=== PATIENT | male | born 1960 | race Caucasian/White ===

== ENCOUNTER 2018-01-03 07:12 | Day surgery (SDC) | payer BC ==
[2017-12-31 14:01] VITALS: BMI 30.2
[2018-01-03 08:54] VITALS: TEMP 97.5
[2018-01-03 12:28] VITALS: BP 112/70; PULSE 71
--- NOTE | 2018-01-04 14:45 | PATH ---
Surgical Pathology Report Patient Name: KAREN GALEANA [facility] Rec. #: [id number] /Age/Gender: 1960 (Age: 57) / M Account: [id number] Location: U-ENDOSCOPY Taken: 01/03/2018 Received: 01/03/2018 Reported: 01/04/2018 Physicians: Tani Mcpherson M.D. Specimen(s) Received A: BX DUODENUM B: BX ANTRUM ULCERATIONS C: BX GASTRIC ANTRUM D: BX DISTAL ESOPHAGUS E: BX MID-ESOPHAGUS Clinical History Preoperative diagnosis: GERD, adenoma surveillance Postoperative diagnosis: Antral ulceration, atrophic gastritis antrum, GERD, diverticulosis Final Diagnosis A. DUODENUM, SECOND PORTION/BULB, BIOPSY: DUODENAL MUCOSA WITH MILD CHRONIC DUODENITIS, [place]S GL[place] HYPERPLASIA, AND PRESERVED VILLOUS ARCHITECTURE. B. STOMACH, ANTRUM, ULCERATION, BIOPSY: GASTRIC ANTRAL MUCOSA WITH MODERATE CHRONIC GASTRITIS AND INTESTINAL METAPLASIA. NO DYSPLASIA IDENTIFIED. IMMUNOHISTOCHEMICAL STAIN FOR H. PYLORI IS NEGATIVE. C. STOMACH, ATROPHIC GASTRITIS, BIOPSY: GASTRIC ANTRAL MUCOSA WITH VASCULAR CONGESTION, SURFACE EROSION AND MODERATE CHRONIC GASTRITIS. IMMUNOHISTOCHEMICAL STAIN FOR H. PYLORI IS NEGATIVE. D. DISTAL ESOPHAGUS, BIOPSY: SQUAMOUS MUCOSA WITH VASCULAR CONGESTION AND BASAL CELL HYPERPLASIA CONSISTENT WITH MODERATE REFLUX ESOPHAGITIS. E. MID ESOPHAGUS, BIOPSY: SQUAMOUS MUCOSA WITH VASCULAR CONGESTION. Electronically Signed Angie Palacios M.D. Gross Description A. Received in formalin, labeled "biopsy second portion of duodenum and duodenal bulb" are 3 govea, irregular portions of soft tissue ranging from 0.4-0.5 cm. in greatest dimension. The specimens are submitted in toto in one cassette. B. Received in formalin, labeled "biopsy antral ulceration" are 3 govea, irregular portions of soft tissue ranging from 0.3-0.4 cm. in greatest dimension. The specimens are submitted in toto in one cassette. C. Received in formalin, labeled "biopsy atrophic gastritis" are 3 govea, irregular portions of soft tissue ranging from 0.3-0.5 cm. in greatest dimension. The specimens are submitted in toto in one cassette. D. Received in formalin, labeled "biopsy distal esophagus" are 5 govea, irregular portions of soft tissue ranging from 0.1-0.4 cm. in greatest dimension. The specimens are submitted in toto in one cassette. E. Received in formalin, labeled "biopsy midesophagus" are 3 govea, irregular portions of soft tissue ranging from 0.2-0.3 cm. in greatest dimension. The specimens are submitted in toto in one cassette. 01/03/201801/03/2018
== END 2018-01-03 09:50 | disposition home or self-care (01) ==
LOC: JASU-ENDO 07:12
PROVIDERS: ATTEND Internal Medicine Gastroenterology
PROC: 0DB68ZX Excision of Stomach, Via Natural or Artificial Opening Endoscopic, Diagnostic (ICD-10-PCS; 2018-01-03)
PROC: 0DB28ZX Excision of Middle Esophagus, Via Natural or Artificial Opening Endoscopic, Diagnostic (ICD-10-PCS; 2018-01-03)
PROC: 0DJD8ZZ Inspection of Lower Intestinal Tract, Via Natural or Artificial Opening Endoscopic (ICD-10-PCS; 2018-01-03)
PROC: 0DB38ZX Excision of Lower Esophagus, Via Natural or Artificial Opening Endoscopic, Diagnostic (ICD-10-PCS; principal; 2018-01-03 08:00)
DX: Z86.010 Personal history of colon polyps (principal); K57.30 Diverticulosis of large intestine without perforation or abscess without bleeding; K64.4 Residual hemorrhoidal skin tags; K59.8 Other specified functional intestinal disorders; K21.9 Gastro-esophageal reflux disease without esophagitis; K25.9 Gastric ulcer, unspecified as acute or chronic, without hemorrhage or perforation; K29.40 Chronic atrophic gastritis without bleeding
CPT/HCPCS: 88305-TC; 88342-TC

== ENCOUNTER 2019-01-10 08:21 | Day surgery (SDC) | payer BC ==
[2019-01-09 15:34] VITALS: BMI 30.2
[~2019-01-10 08:21] MED LIST: ACETAMINOPHEN 325 MG TABLET (FP) PO PRN; CEFAZOLIN 1 GM/D5W 1 GM/50 ML BAG IVPB ONE; ceFAZolin SODIUM 1 GM VIAL IVPB ONE
[2019-01-10] MEDS ORDERED: ceFAZolin SODIUM 1 GM VIAL ONE (09:04)
[2019-01-10] MEDS ORDERED: ONDANSETRON 4 MG/2 ML VIAL IVPUSH PRN (09:17)
[2019-01-10] MEDS ORDERED: oxyCODONE HCL 5 MG TABLET PO PRN (09:17)
[2019-01-10] MEDS ORDERED: PROMETHAZINE HCL 25 MG/1 ML VIAL IVPB PRN (09:17)
[2019-01-10] MEDS ORDERED: MIDAZOLAM HCL 2 MG/2 ML SINGLE DOSE VIAL ONE ×3 (09:20→09:55)
[2019-01-10] MEDS ORDERED: LACTATED RINGERS SOLUTION 1,000 ML IV SCH (09:30)
[2019-01-10] MEDS ORDERED: BUPIVACAINE HCL/PF (5 MG/ML) 30 ML VIAL IJ ONE ×2 (10:02)
[2019-01-10] MEDS ORDERED: LIDOCAINE HCL 1%, 10 MG/ML (20ML VIAL) NR ONE ×2 (10:02)
[2019-01-10] MEDS ORDERED: LIDOCAINE HCL 1%, 10 MG/ML (20ML VIAL) ONE (10:48)
[2019-01-10] MEDS ORDERED: BUPIVACAINE HCL/PF 0.5% (5MG/ML) 10 ML VIAL ONE (10:48)
--- NOTE | 2019-01-10 12:12 | OP ---
Operative Note - Note: Operative Date: 01/10/19 Pre-Operative Diagnosis: painful hammertoe deformity right foot fourth and fifth toes Operation: arthroplasty 4th and fifth toe right foot with exostectomy fifth toe right fifth and hemiphalagectomy laterl fourth toe right foot Findings: same Surgeon: Jocelyn Vazquez Anesthesiologist/[employer] PRINCIPAL: Corinne Damon MD
--- NOTE | 2019-01-10 12:15 | PN ---
Progress Note (short form) - Note Progress Note: pt left or with vitals stable to preoperative status and vascular status to preoperative levels on all digists right foot. Dressing was dry and intact with negative bleeding noted.
[2019-01-10 13:24] VITALS: BP 119/74; PULSE 66; TEMP 97.2
--- NOTE | 2019-01-12 17:28 | PATH ---
Surgical Pathology Report Patient Name: KAREN GALEANA [facility]. Rec. #: [id number] /Age/Gender: 1960 (Age: 58) / M Account: [id number] Location: [facility] SURGICAL Taken: 01/09/2019 Received: 01/10/2019 Reported: 01/12/2019 Physicians: Jocelyn Vazquez DPM Specimen(s) Received A: 4TH HEAD PHALANX RIGHT FOOT B: 5TH HEAD PHALANX RIGHT FOOT Clinical History Painful bunion and hammertoes, deformity of toes Final Diagnosis A. FOOT, RIGHT, FOURTH HEAD PHALANX, ARTHROPLASTY, HEMIPHALANGECTOMY: BONE WITH DEGENERATIVE CHANGES. B. FOOT, RIGHT, FIFTH HEAD PHALANX, ARTHROPLASTY, HEMIPHALANGECTOMY: BONE WITH DEGENERATIVE CHANGES. Electronically Signed Angie Palacios M.D. Gross Description A. Received in formalin labeled "right foot fourth head of phalanx," is a 1.1 x 0.6 x 0.5 cm govea-yellow portion of bone. The specimen is bisected and entirely submitted in one cassette, following decalcification. B. Received in formalin labeled "fifth head of phalanx right foot," is a 0.9 x 0.5 x 0.5 cm govea-yellow portion of bone. The specimen is bisected and entirely submitted in one cassette, following decalcification. DL/01/11/2019 saudi01/11/2019
--- NOTE | 2019-01-12 22:39 | OP ---
DATE OF OPERATION: 01/10/2019 PREOPERATIVE DIAGNOSES: Painful hammer digit, 4th and 5th toes, right foot with a prominent, painful distal phalanx exostosis of the right 5th digit. POSTOPERATIVE DIAGNOSES: Hammertoe, bilateral 4th and 5th, with painful exostosis, right distal phalanx. SURGEON: Jocelyn Vazquez DPM RATTAN WORKER: Yulisa Manuel, PGY3, [employer] Resident ANESTHESIA: Local, 10 mL of Marcaine with lidocaine plain. OPERATION: Derotational arthroplasty, proximal interphalangeal joint, 5th digit, right foot; exostectomy, separate incision, 5th digit of the distal phalanx, right foot; proximal interphalangeal joint arthroplasty, 4th digit, right foot. HEMOSTASIS: Pneumatic ankle tourniquet, 250 mmHg. BLOOD LOSS: Less than 5 mL PROCEDURE: The patient was brought into the operating room and placed in the supine position. The IV sedation was given. No preoperative antibiotics, as no consideration for any external fixation was being utilized. A pneumatic ankle tourniquet was applied to the right ankle and set for 250 mmHg. Local anesthesia was infiltrated into the right 4th and 5th digits using 10 mL of Marcaine/lidocaine 50:50 mix. The operative areas were prepped and draped in the usual sterile manner with a Betadine pain. An Esmarch bandage was then applied to the distal aspect of the foot to exsanguinate while the foot was elevated and the tourniquet was then inflated to 250 mmHg on the right foot. Attention was then directed to the right 5th digit, where 2 converging semielliptical and longitudinal incisions were made over the dorsal aspect. The incision encompassed the dorsal aspect of the proximal interphalangeal joint. The incisions were deepened through the subcutaneous tissue with care taken to identify and retract all vital neurovascular structures. An ellipse of the skin was removed in toto utilizing sharp dissection. All the bleeders were cauterized and ligated as necessary. A transverse tenotomy and capsulotomy were made at the proximal interphalangeal joint of the 5th digit. The head of the proximal phalanx was freed from capsular and ligamentous attachments. Utilizing a double-action bone cutter, the head of the proximal phalanx was resected and removed. Attention was then directed to the distal phalanx, where the exostosis medially was on that 5th digit, right foot. A separate incision was made approximately 1/8-inch long and, using a needle-nose bone rongeur, the exostosis was excised. It was noted to be free of positive palpable area. It was noted to be concave without any prominent exostosis on that medial aspect of the distal phalanx. Attention was then directed to the 4th digit, where a linear longitudinal incision was made over the dorsal aspect of the 4th digit, right foot. The incision was taken down and deepened through subcutaneous tissue with care to identify and retract all neurovascular structures. Utilizing sharp dissection and curved hemostat, the transverse tenotomy and capsulotomy were made at the proximal interphalangeal joint. The head of the proximal phalanx of the 4th digit was freed from the capsular and ligamentous attachments. Utilizing a double-action bone cutter, the head of the proximal phalanx was resected and removed. Both distal remaining segments were rasped smooth and noted to be free of spiculation. The wounds were copiously irrigated with normal sterile saline. The extensor tendons were approximated and coapted using 4-0 Vicryl sutures, each 4th and 5th toes of the right foot. Skin was closed with 5-0 nylon running, interlocking over the 4th proximal interphalangeal joint and running, interlocking over the 5th proximal interphalangeal joint. Three simple 5-0 nylon sutures were used on the 3rd incisional site at the distal interphalangeal joint of the right 5th digit. Then, 3 mL of lidocaine/Marcaine combination were used, 1.5 to each digit, under the incision line prior to closing the dressing. A Betadine Adaptic dressing was placed over the incisions and 4x4 gauze was placed over the toes with a well-padded dressing. A 4-inch Laila was applied to the entire foot and a 4-inch Yury wrap was applied. The tourniquet was then deflated. The patient tolerated the procedure well and will be sent to recovery with vital signs stable. All the digits on the right foot were noted to be instantaneous to preoperative levels. The patient will be discharged with written and oral instructions that will be given as well. ARTURO COLEMAN/[id number]
== END 2019-01-10 13:05 | disposition home or self-care (01) ==
LOC: JASU-SURG 08:21
PROVIDERS: ATTEND Podiatrist
PROC: 0QBQ0ZZ Excision of Right Toe Phalanx, Open Approach (ICD-10-PCS; 2019-01-10)
PROC: 0SRP0JZ Replacement of Right Toe Phalangeal Joint with Synthetic Substitute, Open Approach (ICD-10-PCS; principal; 2019-01-10 09:30)
DX: M20.41 Other hammer toe(s) (acquired), right foot (principal); M25.774 Osteophyte, right foot
CPT/HCPCS: 73630-TC-RT-FY; 88304-TC; 88311-TC; 97116-GP

== ENCOUNTER 2023-11-03 04:10 | Day surgery (SDC) | payer BC ==
[2023-10-28 13:31] VITALS: BMI 29.4
[2023-11-03 11:51] VITALS: TEMP 97.3
[2023-11-03 12:14] VITALS: PULSE 66
[2023-11-03 12:28] VITALS: BP 106/67; RESP 14
== END 2023-11-03 12:41 | disposition home or self-care (01) ==
LOC: JASU-ENDO 04:10
PROVIDERS: ATTEND Internal Medicine Gastroenterology
PROC: 0DB98ZX Excision of Duodenum, Via Natural or Artificial Opening Endoscopic, Diagnostic (ICD-10-PCS; 2023-11-03)
PROC: 0DB78ZX Excision of Stomach, Pylorus, Via Natural or Artificial Opening Endoscopic, Diagnostic (ICD-10-PCS; 2023-11-03)
PROC: 0DB68ZX Excision of Stomach, Via Natural or Artificial Opening Endoscopic, Diagnostic (ICD-10-PCS; 2023-11-03)
PROC: 0DBL8ZX Excision of Transverse Colon, Via Natural or Artificial Opening Endoscopic, Diagnostic (ICD-10-PCS; principal; 2023-11-03 12:00)
DX: Z12.11 Encounter for screening for malignant neoplasm of colon (principal); D12.3 Benign neoplasm of transverse colon; K57.30 Diverticulosis of large intestine without perforation or abscess without bleeding; K29.50 Unspecified chronic gastritis without bleeding; K21.00 Gastro-esophageal reflux disease with esophagitis, without bleeding; K31.7 Polyp of stomach and duodenum; Z86.010 Personal history of colon polyps; E11.9 Type 2 diabetes mellitus without complications; Z79.84 Long term (current) use of oral hypoglycemic drugs
CPT/HCPCS: 82962; 88305-TC; 88342-TC